=== PATIENT | female | born 1990 | race Caucasian/White ===

== ENCOUNTER 2019-05-22 13:45 | Observation (INO) ==
[2019-05-22] MEDS ORDERED: Td (TENIVAC) Vaccine 0.5 ML VIAL IM ONE (14:48)
[2019-05-22] MEDS ORDERED: Tdap (Boostrix) Vaccine 0.5 ML SYRINGE IM ONE (14:50)
[2019-05-22 15:13] LABS: Basophils # 0.1 K/mcL (0.0-0.2); Basophils % 0.5 %; Eosinophils # 0.1 K/mcL (0.0-0.6); Eosinophils % 0.4 %; Hematocrit 40.9 % (35.3-44.9); Hemoglobin 14.6 g/dL (11.5-15.4); Immature Granulocytes % 0.4 % (0-4); Lymphocytes # 2.1 K/mcL (0.6-4.6); Lymphocytes % 15.8 %; Mean Corpuscular HGB Conc 35.7 g/dL (31.6-35.5); Mean Corpuscular Hemoglobin 30.5 pg (28.0-33.3); Mean Corpuscular Volume 85.4 fL (83.0-100.0); Monocytes # 0.5 K/mcL (0.0-1.3); Monocytes % 3.9 %; Neutrophils # 10.5 K/mcL (1.6-8.9); Platelet Count 301 K/mcL (140-400); Red Blood Count 4.79 M/mcL (3.82-4.97); Red Cell Distribution Width 11.8 % (11.5-14.5); White Blood Count 13.2 K/mcL (4.3-11.1)
[2019-05-22 15:20] LABS: Bilirubin,Urine Negative (Negative); Blood,Urine Negative (Negative); Clarity,Urine Clear (Clear); Color,Urine Yellow (Yellow); Glucose,Urine (UA) Normal (Normal); Ketones,Urine Negative (Negative); Leukocyte Esterase,Urine Negative (Negative); Nitrite,Urine Negative (Negative); PH,Urine 6.5 pH Units (5.0-8.0); Protein,Urine Negative (Neg-Trace); Specific Gravity,Urine 1.013 (1.010-1.025); Urobilinogen,Urine Normal (Normal)
[2019-05-22 15:31] LABS: Amphetamine Screen,Urine Negative ng/mL (Cutoff=1000); Barbiturate Screen,Urine Negative ng/mL (Cutoff=200); Benzodiazepines Screen,Urine Negative ng/mL (Cutoff=200); Cannabinoid Screen,Urine Positive ng/mL (Cutoff = 50); Cocaine Screen,Urine Negative ng/mL (Cutoff= 300); Opiate Screen,Urine Negative ng/mL (Cutoff=300); Phencyclidine Screen,Urine Negative ng/mL (Cutoff=25)
[2019-05-22 15:33] LABS: Acetaminophen < 10 mcg/mL (10-20); BUN/Creatinine Ratio 12 (6-26); Blood Urea Nitrogen 9 mg/dL (6-20); Calcium 9.8 mg/dL (8.6-10.3); Carbon Dioxide 23 mEq/L (23-29); Chloride 105 mEq/L (98-107); Ethanol < 10 mg/dL (Less than 10); Glucose 90 mg/dL (70-105); Osmolality,Calculated 288 (280-300); Potassium 4.2 mEq/L (3.5-5.1); Salicylate < 2.5 mg/dL (15.0-30.0); Sodium 140 mEq/L (136-145); eGFR For African Americans > 60 (> 60); eGFR For Non-African Americans > 60 (> 60)
[2019-05-22] MEDS ORDERED: *HR* LORazepam 1 MG TABLET PO ONE (18:03)
[2019-05-22] MEDS ORDERED: *HR* LORazepam 2 MG/ML VIAL IM PRN (18:32)
[2019-05-22] MEDS ORDERED: Mag Hydrox/Al Hydrox/Simeth 30 ML UDC PO PRN (18:32)
[2019-05-22] MEDS ORDERED: Haloperidol Lactate 5 MG/ML VIAL IM PRN (18:32)
[2019-05-22] MEDS ORDERED: traZODone 50 MG TABLET PO PRN (18:32)
[2019-05-22] MEDS ORDERED: hydrOXYzine pamoate 25 MG CAPSULE PO PRN (18:32)
[2019-05-22] MEDS ORDERED: MOM Conc 10 ML UD.LIQ PO PRN (18:32)
[2019-05-22] MEDS ORDERED: *HR* LORazepam 1 MG TABLET PO PRN (18:32)
[2019-05-23] MEDS ORDERED: [UNRECOGNIZED DRUG - OTHER] VG SCH (03:00)
[2019-05-23 08:49] LABS: Alanine Aminotransferase 14 Units/L (7-52); Albumin 4.8 g/dL (3.5-5.7); Albumin/Globulin Ratio 1.6 (1.1-2.2); Alkaline Phosphatase 77 Units/L (34-104); Aspartate Amino Transferase 18 Units/L (13-39); Bilirubin,Direct 0.1 mg/dL (0.0-0.2); Bilirubin,Indirect 0.3 mg/dL (0.0-1.0); Bilirubin,Total 0.4 mg/dL (0.3-1.0); Total Protein 7.8 g/dL (6.4-8.9)
[2019-05-23] MEDS ORDERED: clonazePAM 0.5 MG TABLET PO PRN (09:00)
[2019-05-23] MEDS ORDERED: lamoTRIgine 100 MG TABLET PO SCH (09:00)
[2019-05-23 10:04] VITALS: BP 124/78
[2019-05-23] MEDS ORDERED: traZODone 50 MG TABLET PO SCH (21:00)
[2019-05-23] MEDS ORDERED: cloNIDine HCl 0.1 MG TABLET PO SCH (21:00)
== END 2019-05-23 10:40 | disposition home or self-care (01) ==
LOC: EMEROOARM 13:45 → 1ANU 13:45
PROVIDERS: ADMIT Psychiatry & Neurology Psychiatry; ATTEND Psychiatry & Neurology Psychiatry